=== PATIENT | female | born 1955 | race Caucasian/White ===

== ENCOUNTER 2023-08-28 16:06 | Inpatient (IN) | payer MEDICARE ==
[~2023-08-28] VITALS: Ht 160 cm; Wt 56.2 kg
[2023-08-28 16:29] VITALS: BP 97/44
[2023-08-28 18:53] LABS: BASO % 0.3 % (0.0-1.0); EOS % 0.4 % (1.0-4.0); HEMATOCRIT 42.5 % (37.0-47.0); LYMPH # 1.4 10*3/uL (1.3-4.4); LYMPH % 12.7 % (27.0-41.0); MEAN CELL VOLUME 95.5 fl (81.0-99.0); MEAN CORPUSCULAR HGB 30.3 pg (27.0-31.0); MEAN CORPUSCULAR HGB CONC 31.8 g/dl (33.0-37.0); MEAN PLATELET VOLUME 8.7 fl (9.6-12.3); MONO # 0.5 10*3/uL (0.1-1.0); MONO % 4.3 % (3.0-9.0); NEUT % 81.8 % (47.0-73.0); PLATELET COUNT AUTOMATED 243 10*3/uL (130-400); RED BLOOD COUNT 4.45 10*6/uL (4.10-5.10); RED CELL DISTRI WIDTH 11.8 % (0-14.5); WHITE BLOOD COUNT 10.9 10*3/uL (4.8-10.8)
[2023-08-28 19:19] LABS: ALKALINE PHOSPHATASE 65 U/L (46-116); BUN 16 mg/dl (9-23); CHLORIDE 105 mmol/L (98-107); CPK 38 U/L (34-171); ETHYL ALCOHOL < 3.0 mg/dl (<3); POTASSIUM 4.5 mmol/L (3.4-5.1); SGPT/ALT 7 U/L (10-49); TOTAL PROTEIN 6.6 gm/dL (6.0-8.0)
[2023-08-28 19:37] LABS: BILIRUBIN Negative (Negative); BLOOD Negative (Negative); CLARITY Clear (Clear); COLOR Yellow (Yellow); GLUCOSE Negative (Negative); KETONE Negative (Negative); LEUKO ESTERASE 2+ (Negative); NITRITE Negative (Negative); UROBILINOGEN 0.2 E.U./dl (0.0-1.0)
[2023-08-28 19:45] LABS: URINE AMPHETAMINES Negative (1000ng/ml); URINE BARBITURATES Negative (200ng/ml); URINE BENZODIAZEPINES Negative (200ng/ml); URINE CANNABINOIDS (THC) Negative (50ng/ml); URINE COCAINE Negative (300ng/ml); URINE METHADONE Negative (300ng/ml); URINE OPIATES Negative (300ng/ml); URINE PHENCYCLIDINE Negative (25ng/ml)
[2023-08-28 19:49] LABS: BACTERIA 1+; RBC 0-2 rbc/hpf (0-2); WBC 31-40 wbc/hpf (0-5)
[2023-08-28 21:50] VITALS: BP 111/73
[2023-08-29] MEDS ORDERED: CARBIDOPA-LEVO1 EAC6 PO (00:29)
[2023-08-29] MEDS ORDERED: DEPAKOTE ER500 MG PO (00:30)
[2023-08-29] MEDS ORDERED: LODINE XL 400M400 MG PO (00:30)
[2023-08-29] MEDS ORDERED: FLONASE ALLERG9.9 ML NAS (00:31)
[2023-08-29] MEDS ORDERED: NEURONTIN100 MG PO (00:32)
[2023-08-29] MEDS ORDERED: LOSARTAN POTASS50 M1 PO (00:33)
[2023-08-29] MEDS ORDERED: METOPROLOL SUCC50 M1 PO (00:34)
[2023-08-29] MEDS ORDERED: OMEPRAZOLE40 MG PO (00:34)
[2023-08-29] MEDS ORDERED: HEALTHYLAX17 GM PO (00:35)
[2023-08-29] MEDS ORDERED: SENEXON-S 50-81 EACH PO (00:36)
[2023-08-29] MEDS ORDERED: TAMSULOSIN HCL0.4 MG PO (00:36)
[2023-08-29] MEDS ORDERED: VITAMIN D350 MC2 PO (00:37)
[2023-08-29] MEDS ORDERED: LIPITOR40 MG PO (00:38)
[2023-08-29] MEDS ORDERED: MIRTAZAPINE15 M2 PO (00:39)
[2023-08-29] MEDS ORDERED: TRAZODONE100 MG PO (00:39)
[2023-08-29] MEDS ORDERED: VOLTAREN ARTHRI20 GM T (00:41)
[2023-08-29] MEDS ORDERED: SENNA8.6 MG PO (00:41)
[2023-08-29 08:26] VITALS: BP 124/57
[2023-08-29 08:38] LABS: CHOLESTEROL 141 mg/dL (<200); LDL CHOLESTEROL 65 mg/dL (9-159); TRIGLYCERIDES 134 mg/dl (<150)
[2023-08-29 20:00] VITALS: BP 129/53
[2023-08-30 08:00] VITALS: BP 99/44
[2023-08-30 09:04] VITALS: BP 120/65
[2023-08-30 20:00] VITALS: BP 126/69
[2023-08-31 08:36] VITALS: BP 141/68
[2023-08-31 20:00] VITALS: BP 133/50
[2023-09-01 08:00] VITALS: BP 121/59
[2023-09-01 20:00] VITALS: BP 148/63
[2023-09-02 08:00] VITALS: BP 120/64
[2023-09-02 20:00] VITALS: BP 116/86
[2023-09-03 08:05] VITALS: BP 92/47
[2023-09-03 20:00] VITALS: BP 108/43
[2023-09-04 07:29] VITALS: BP 119/53
[2023-09-04 20:00] VITALS: BP 122/64
[2023-09-05 08:00] VITALS: BP 123/66
[2023-09-05 20:00] VITALS: BP 141/69
[2023-09-06 07:36] VITALS: BP 137/66
[2023-09-06 20:00] VITALS: BP 139/61
[2023-09-07 07:58] VITALS: BP 98/56
[2023-09-07 20:00] VITALS: BP 134/60
[2023-09-08 07:00] VITALS: BP 113/60
[2023-09-08 20:00] VITALS: BP 124/60
[2023-09-09 06:18] LABS: BASO # 0.1 10*3/uL (0.0-0.1); BASO % 0.7 % (0.0-1.0); EOS # 0.2 10*3/uL (0.0-0.4); EOS % 2.7 % (1.0-4.0); HEMATOCRIT 37.9 % (37.0-47.0); MEAN CELL VOLUME 93.8 fl (81.0-99.0); MEAN CORPUSCULAR HGB 30.4 pg (27.0-31.0); MEAN CORPUSCULAR HGB CONC 32.5 g/dl (33.0-37.0); MEAN PLATELET VOLUME 8.9 fl (9.6-12.3); MONO # 0.4 10*3/uL (0.1-1.0); MONO % 5.2 % (3.0-9.0); NEUT # 3.1 10*3/uL (2.3-7.9); NEUT % 46.1 % (47.0-73.0); PLATELET COUNT AUTOMATED 275 10*3/uL (130-400); RED BLOOD COUNT 4.04 10*6/uL (4.10-5.10); RED CELL DISTRI WIDTH 12.1 % (0-14.5); WHITE BLOOD COUNT 6.7 10*3/uL (4.8-10.8)
[2023-09-09 06:38] LABS: ALKALINE PHOSPHATASE 75 U/L (46-116); BUN 29 mg/dl (9-23); CHLORIDE 106 mmol/L (98-107); POTASSIUM 4.5 mmol/L (3.4-5.1); TOTAL PROTEIN 6.1 gm/dL (6.0-8.0)
[2023-09-09 06:41] LABS: SGPT/ALT < 7 U/L (10-49)
[2023-09-09 08:00] VITALS: BP 109/56
[2023-09-09 20:00] VITALS: BP 120/56
[2023-09-10 07:48] VITALS: BP 101/51
[2023-09-10 20:00] VITALS: BP 140/55
[2023-09-11 07:38] VITALS: BP 132/65
[2023-09-11] MEDS ORDERED: TRIHEXYPHENIDYL2 M3 PO (10:54)
[2023-09-11] MEDS ORDERED: TRINTELLIX20 MG PO (10:54)
[2023-09-11] MEDS ORDERED: HYDROXYZINE HCL25 MG PO (10:54)
[2023-09-11] MEDS ORDERED: VITAMIN E180 M1 PO (10:54)
[2023-09-11] MEDS ORDERED: GABAPENTIN600 MG PO (10:54)
[2023-09-11] MEDS ORDERED: PALIPERIDONE E1.5 MG PO (10:54)
[2023-09-11] MEDS ORDERED: GLUCOPHAGE500 MG PO (15:00)
[2023-09-11] MEDS ORDERED: AUSTEDO 12 MG PO (19:40)
[2023-09-11] MEDS ORDERED: [UNRECOGNIZED DRUG - OTHER] PO (19:40)
[2023-09-11 20:00] VITALS: BP 129/545
[2023-09-12 07:52] VITALS: BP 128/54
== END 2023-09-12 17:41 | DRG 885 ==
LOC: ED 16:06 → 3N 21:47
PROVIDERS: Counselor Professional; Nurse Practitioner Family; ADMIT Psychiatry & Neurology Psychiatry; ATTEND Psychiatry & Neurology Psychiatry
DX: F25.1 Schizoaffective disorder, depressive type (principal); N39.0 Urinary tract infection, site not specified; F45.9 Somatoform disorder, unspecified; M62.50 Muscle wasting and atrophy, not elsewhere classified, unspecified site; I87.2 Venous insufficiency (chronic) (peripheral); E11.9 Type 2 diabetes mellitus without complications; K21.9 Gastro-esophageal reflux disease without esophagitis; M62.59 Muscle wasting and atrophy, not elsewhere classified, multiple sites; F29 Unspecified psychosis not due to a substance or known physiological condition; G89.29 Other chronic pain; M54.9 Dorsalgia, unspecified; E78.49 Other hyperlipidemia; M48.061 Spinal stenosis, lumbar region without neurogenic claudication; E55.9 Vitamin D deficiency, unspecified; M51.36 Other intervertebral disc degeneration, lumbar region; Z88.0 Allergy status to penicillin; Z86.010 Personal history of colon polyps

== ENCOUNTER 2023-12-03 22:50 | Emergency (ER) | payer MEDICARE ==
[~2023-12-03 22:50] MED LIST: AUSTEDO 12 MG PO; CARAFATE1 G1 PO; CARBIDOPA-LEVO1 EAC6 PO; DEPAKOTE ER500 MG PO; FLONASE ALLERG9.9 ML NAS; GABAPENTIN600 MG PO; GLUCOPHAGE500 MG PO; HEALTHYLAX17 GM PO; HYDROXYZINE HCL25 MG PO; Haldol Decanoate IM; INVEGA SUSTENN156 MG IM; INVEGA3 MG PO; LIPITOR40 MG PO; LODINE XL 400M400 MG PO; LOSARTAN POTASS50 M1 PO; METOPROLOL SUCC50 M1 PO; MIRTAZAPINE15 M2 PO; NEURONTIN100 MG PO; OMEPRAZOLE40 MG PO; PALIPERIDONE E1.5 MG PO; SENEXON-S 50-81 EACH PO; SENNA8.6 MG PO; TAMSULOSIN HCL0.4 MG PO; TRAZODONE100 MG PO; TRIHEXYPHENIDYL2 M3 PO; TRINTELLIX10 MG PO; TRINTELLIX20 MG PO; VITAMIN D250 MC1 PO; VITAMIN D350 MC2 PO; VITAMIN E180 M1 PO; VOLTAREN ARTHRI20 GM T; [UNRECOGNIZED DRUG - OTHER] PO
[2023-12-03 23:18] LABS: BASO # 0.1 10*3/uL (0.0-0.1); BASO % 0.9 % (0.0-1.0); EOS # 0.6 10*3/uL (0.0-0.4); EOS % 10.7 % (1.0-4.0); HEMATOCRIT 40.1 % (37.0-47.0); LYMPH # 2.3 10*3/uL (1.3-4.4); LYMPH % 39.8 % (27.0-41.0); MEAN CELL VOLUME 93.7 fl (81.0-99.0); MEAN CORPUSCULAR HGB 29.4 pg (27.0-31.0); MEAN CORPUSCULAR HGB CONC 31.4 g/dl (33.0-37.0); MEAN PLATELET VOLUME 9.5 fl (9.6-12.3); MONO # 0.5 10*3/uL (0.1-1.0); MONO % 8.1 % (3.0-9.0); NEUT # 2.3 10*3/uL (2.3-7.9); NEUT % 40.3 % (47.0-73.0); PLATELET COUNT AUTOMATED 221 10*3/uL (130-400); RED BLOOD COUNT 4.28 10*6/uL (4.10-5.10); RED CELL DISTRI WIDTH 12.4 % (0-14.5); WHITE BLOOD COUNT 5.7 10*3/uL (4.8-10.8)
[2023-12-03 23:37] LABS: ALKALINE PHOSPHATASE 92 U/L (46-116); BUN 18 mg/dl (9-23); CHLORIDE 106 mmol/L (98-107); LIPASE 42 U/L (12-53); POTASSIUM 4.2 mmol/L (3.4-5.1); SGPT/ALT < 7 U/L (5-49); TOTAL PROTEIN 6.6 gm/dL (6.0-8.0)
== END 2023-12-04 00:26 | disposition home or self-care (01) ==
LOC: ED 22:50
PROVIDERS: Internal Medicine
DX: S42.215A Unspecified nondisplaced fracture of surgical neck of left humerus, initial encounter for closed fracture (principal); R10.2 Pelvic and perineal pain; M25.551 Pain in right hip; M25.552 Pain in left hip; F25.9 Schizoaffective disorder, unspecified; Z88.0 Allergy status to penicillin; Z79.899 Other long term (current) drug therapy; X58.XXXA Exposure to other specified factors, initial encounter; Y93.89 Activity, other specified; Y92.89 Other specified places as the place of occurrence of the external cause; Y99.8 Other external cause status

== ENCOUNTER 2024-01-20 11:15 | Inpatient (IN) | payer MEDICARE ==
[~2024-01-20] VITALS: Ht 162.5 cm; Wt 64.0 kg
[2024-01-20 11:29] LABS: BILIRUBIN Negative (Negative); BLOOD Negative (Negative); CLARITY Clear (Clear); COLOR Yellow (Yellow); GLUCOSE Negative (Negative); KETONE Negative (Negative); LEUKO ESTERASE Negative (Negative); NITRITE Negative (Negative); PH 5.5 (4.5-8.0); UROBILINOGEN 0.2 E.U./dl (0.0-1.0)
[2024-01-20 11:37] LABS: URINE AMPHETAMINES Negative (1000ng/ml); URINE BARBITURATES Negative (200ng/ml); URINE BENZODIAZEPINES Negative (200ng/ml); URINE CANNABINOIDS (THC) Negative (50ng/ml); URINE COCAINE Negative (300ng/ml); URINE METHADONE Negative (300ng/ml); URINE OPIATES Negative (300ng/ml); URINE PHENCYCLIDINE Negative (25ng/ml)
[2024-01-20 11:55] LABS: BACTERIA 1+; RBC 0-2 rbc/hpf (0-2)
[2024-01-20 11:57] VITALS: BP 148/59
[2024-01-20 12:05] LABS: BASO % 0.5 % (0.0-1.0); EOS # 0.2 10*3/uL (0.0-0.4); EOS % 5.5 % (1.0-4.0); HEMATOCRIT 39.6 % (37.0-47.0); LYMPH # 1.4 10*3/uL (1.3-4.4); MEAN CELL VOLUME 88.8 fl (81.0-99.0); MEAN CORPUSCULAR HGB 28.7 pg (27.0-31.0); MEAN CORPUSCULAR HGB CONC 32.3 g/dl (33.0-37.0); MONO # 0.3 10*3/uL (0.1-1.0); MONO % 7.8 % (3.0-9.0); NEUT # 2.3 10*3/uL (2.3-7.9); PLATELET COUNT AUTOMATED 226 10*3/uL (130-400); RED BLOOD COUNT 4.46 10*6/uL (4.10-5.10); RED CELL DISTRI WIDTH 12.6 % (0-14.5); WHITE BLOOD COUNT 4.3 10*3/uL (4.8-10.8)
[2024-01-20 12:32] LABS: ALKALINE PHOSPHATASE 80 U/L (46-116); BUN 11 mg/dl (9-23); CHLORIDE 105 mmol/L (98-107); CPK 71 U/L (34-171); POTASSIUM 3.8 mmol/L (3.4-5.1); SGPT/ALT 14 U/L (5-49); TOTAL PROTEIN 6.7 gm/dL (6.0-8.0)
[2024-01-20 12:34] LABS: ETHYL ALCOHOL < 3.0 mg/dl (<3)
[2024-01-20 13:44] VITALS: BP 147/86
[2024-01-20] MEDS ORDERED: OMEPRAZOLE MAGN20 MG PO (13:56)
[2024-01-20] MEDS ORDERED: PALIPERIDONE PALMITATE 156 MG INJECTION IM SCH (15:00)
[2024-01-20] MEDS ORDERED: HALOPERIDOL DECANOATE 50 MG/ML AMP IM SCH (15:00)
[2024-01-20] MEDS ORDERED: Magnesium Hydroxide 30 ML UDC PO PRN (17:00)
[2024-01-20] MEDS ORDERED: ACETAMINOPHEN 325 MG TAB PO PRN (17:00)
[2024-01-20] MEDS ORDERED: DICLOFENAC SODIUM 100 GM TUBE T PRN (19:10)
[2024-01-20] MEDS ORDERED: Sennosides A and B 8.6 MG TAB PO PRN (19:10)
[2024-01-20] MEDS ORDERED: DEXTROSE 10 % IN WATER 250 ML IV PRN (19:30)
[2024-01-20 20:00] VITALS: BP 125/67
[2024-01-20] MEDS ORDERED: INSULIN LISPRO 1 UNIT/0.01 ML SQ SCH (22:00)
[2024-01-21] MEDS ORDERED: OMEPRAZOLE 20 MG CAP PO SCH (06:00)
[2024-01-21 07:29] LABS: BASO % 0.6 % (0.0-1.0); EOS # 0.2 10*3/uL (0.0-0.4); HEMATOCRIT 38.7 % (37.0-47.0); LYMPH # 1.4 10*3/uL (1.3-4.4); LYMPH % 27.2 % (27.0-41.0); MEAN CELL VOLUME 88.8 fl (81.0-99.0); MEAN CORPUSCULAR HGB 28.7 pg (27.0-31.0); MEAN CORPUSCULAR HGB CONC 32.3 g/dl (33.0-37.0); MEAN PLATELET VOLUME 9.5 fl (9.6-12.3); MONO # 0.4 10*3/uL (0.1-1.0); MONO % 7.1 % (3.0-9.0); NEUT # 3.2 10*3/uL (2.3-7.9); NEUT % 60.9 % (47.0-73.0); PLATELET COUNT AUTOMATED 225 10*3/uL (130-400); RED BLOOD COUNT 4.36 10*6/uL (4.10-5.10); RED CELL DISTRI WIDTH 12.6 % (0-14.5); WHITE BLOOD COUNT 5.2 10*3/uL (4.8-10.8)
[2024-01-21 07:40] VITALS: BP 139/70
[2024-01-21 07:53] LABS: ALKALINE PHOSPHATASE 73 U/L (46-116); BUN 10 mg/dl (9-23); CHLORIDE 105 mmol/L (98-107); CHOLESTEROL 186 mg/dL (<200); LDL CHOLESTEROL 92 mg/dL (9-159); POTASSIUM 3.8 mmol/L (3.4-5.1); SGPT/ALT 10 U/L (5-49); TOTAL PROTEIN 6.4 gm/dL (6.0-8.0); TRIGLYCERIDES 190 mg/dl (<150)
[2024-01-21] MEDS ORDERED: FLUTICASONE PROPIONATE Nasal 16 Gm spray NAS SCH (09:00)
[2024-01-21] MEDS ORDERED: Polyethylene Glycol 3350 17 GM PACKET PO SCH (09:00)
[2024-01-21 09:26] LABS: VITAMIN D, 25-HYDROXY 28.7 ng/mL (30-100)
[2024-01-21 20:00] VITALS: BP 148/69
[2024-01-22 07:28] VITALS: BP 136/60
[2024-01-22] MEDS ORDERED: HALOPERIDOL DECANOATE 100 MG/ML AMP IM SCH (09:00)
[2024-01-22] MEDS ORDERED: HALOPERIDOL DECANOATE 50 MG/ML AMP IM SCH (09:00)
[2024-01-22 20:00] VITALS: BP 132/69
[2024-01-23 08:00] VITALS: BP 148/77
[2024-01-23 20:00] VITALS: BP 120/58
[2024-01-24 07:49] VITALS: BP 144/66
[2024-01-24 20:00] VITALS: BP 166/98
[2024-01-25 07:46] VITALS: BP 137/65
[2024-01-25] MEDS ORDERED: PALIPERIDONE PALMITATE 156 MG INJECTION IM ONE (12:20)
[2024-01-25 20:00] VITALS: BP 142/70
[2024-01-26 07:49] VITALS: BP 136/63
[2024-01-26] MEDS ORDERED: ERGOCALCIFEROL 50,000 IU CAP (1.25 MG) PO SCH (09:00)
[2024-01-26 20:00] VITALS: BP 121/58
[2024-01-27 08:00] VITALS: BP 157/69
[2024-01-27 10:56] LABS: BASO % 0.3 % (0.0-1.0); EOS # 0.1 10*3/uL (0.0-0.4); EOS % 1.3 % (1.0-4.0); LYMPH # 1.4 10*3/uL (1.3-4.4); LYMPH % 21.8 % (27.0-41.0); MEAN CELL VOLUME 88.4 fl (81.0-99.0); MEAN CORPUSCULAR HGB 28.1 pg (27.0-31.0); MEAN CORPUSCULAR HGB CONC 31.8 g/dl (33.0-37.0); MEAN PLATELET VOLUME 9.4 fl (9.6-12.3); MONO # 0.5 10*3/uL (0.1-1.0); MONO % 8.1 % (3.0-9.0); NEUT # 4.3 10*3/uL (2.3-7.9); NEUT % 68.3 % (47.0-73.0); PLATELET COUNT AUTOMATED 245 10*3/uL (130-400); RED BLOOD COUNT 4.41 10*6/uL (4.10-5.10); RED CELL DISTRI WIDTH 13.1 % (0-14.5); WHITE BLOOD COUNT 6.3 10*3/uL (4.8-10.8)
[2024-01-27 11:29] LABS: ALKALINE PHOSPHATASE 82 U/L (46-116); BUN 15 mg/dl (9-23); CHLORIDE 99 mmol/L (98-107); POTASSIUM 3.9 mmol/L (3.4-5.1); SGPT/ALT 23 U/L (5-49)
[2024-01-27 20:00] VITALS: BP 116/62
[2024-01-28 08:00] VITALS: BP 130/69
[2024-01-28 10:24] LABS: ALKALINE PHOSPHATASE 78 U/L (46-116); BUN 13 mg/dl (9-23); CHLORIDE 101 mmol/L (98-107); POTASSIUM 3.8 mmol/L (3.4-5.1); SGPT/ALT 18 U/L (5-49); TOTAL PROTEIN 6.7 gm/dL (6.0-8.0)
[2024-01-28 20:00] VITALS: BP 141/64
[2024-01-29 08:08] VITALS: BP 150/77
[2024-01-29 20:00] VITALS: BP 143/61
[2024-01-30 08:00] VITALS: BP 144/84
[2024-01-30 20:00] VITALS: BP 144/56
[2024-01-31 07:34] VITALS: BP 140/64
[2024-01-31] MEDS ORDERED: HALOPERIDO100 MG/11 IM (09:08)
[2024-02-07] MEDS ORDERED: HALOPERIDOL DECANOATE 100 MG/ML AMP IM SCH (09:00)
[2024-02-21] MEDS ORDERED: PALIPERIDONE PALMITATE 234 MG INJECTION IM SCH (09:00)
== END 2024-01-31 11:11 | DRG 885 ==
LOC: ED 11:15 → 3N 13:22
PROVIDERS: Counselor Professional; Internal Medicine; Nurse Practitioner Family; ADMIT Psychiatry & Neurology Psychiatry; ATTEND Psychiatry & Neurology Psychiatry
DX: F25.9 Schizoaffective disorder, unspecified (principal); E11.65 Type 2 diabetes mellitus with hyperglycemia; E87.1 Hypo-osmolality and hyponatremia; K21.9 Gastro-esophageal reflux disease without esophagitis; I10 Essential (primary) hypertension; Z20.822 Contact with and (suspected) exposure to COVID-19; F29 Unspecified psychosis not due to a substance or known physiological condition; D72.819 Decreased white blood cell count, unspecified; R00.0 Tachycardia, unspecified; G89.29 Other chronic pain; E78.5 Hyperlipidemia, unspecified; Z88.0 Allergy status to penicillin

== ENCOUNTER → 2024-06-10 | Outpatient (CLI) | payer MEDICARE ==
[~2024-06-10] MED LIST changes: +HALOPERIDO100 MG/11 IM; +OMEPRAZOLE MAGN20 MG PO
== END | disposition home or self-care (01) ==
LOC: MAMMO 10:00
PROVIDERS: ATTEND Internal Medicine
DX: Z12.31 Encounter for screening mammogram for malignant neoplasm of breast (principal)

== ENCOUNTER → 2024-07-11 | Outpatient (CLI) | payer MEDICARE | END | disposition home or self-care (01) | LOC: RAD 11:40 | PROVIDERS: ATTEND Internal Medicine | DX: M16.0 Bilateral primary osteoarthritis of hip (principal); R26.2 Difficulty in walking, not elsewhere classified; E11.9 Type 2 diabetes mellitus without complications; I10 Essential (primary) hypertension ==